=== PATIENT | male | born 1985 | race Caucasian/White ===

== ENCOUNTER 2022-08-08 17:47 | Emergency (ER) | payer BC, SELFPAY ==
--- NOTE | ~2022-08-08 | CT_ITS ---
EXAMINATION: CT ABDOMEN AND PELVIS WITHOUT CONTRAST CLINICAL INFORMATION: Left abdominal pain. COMPARISON: None. TECHNIQUE: Multidetector volumetric imaging was performed from the superior aspect of the liver through the pubic symphysis. Sagittal and coronal reformatted images were obtained on the technologist's workstation. This CT examination was performed using dose optimization techniques as appropriate, variously including the following: *Automated exposure control *Adjustment of mA and/or kV according to patient size (this includes techniques or standardized protocols for targeted exams where dose is matched to indication/reason for exam; i.e. extremities or head) *Use of iterative reconstruction technique DLP: 810 mGy-cm FINDINGS: LUNG BASES: No focal consolidation or pleural effusion. LIVER, GALLBLADDER, AND BILIARY TREE: The liver is enlarged with decreased attenuation suggesting hepatic steatosis with regions of focal fatty sparing adjacent to the gallbladder. There are no suspicious focal liver lesions in this limited noncontrast examination. Normal appearance of the gallbladder. No biliary ductal dilatation. PANCREAS: Unremarkable. SPLEEN: Unremarkable. ADRENAL GLANDS: Unremarkable. KIDNEYS AND URETERS: Mild to moderate left hydroureteronephrosis with a 6 mm calculus in the left ureter at the level of L2-L3 measuring 1084 Hounsfield units. There is a 4 mm calculus in the mid pole of the left kidney (4:302) and a 3 mm calculus in the upper pole of the left kidney (4:256). Approximately 2 or 3 additional punctate calculi are visualized in the left kidney. No right-sided renal calculi. No significant perinephric fat stranding. BLADDER: Unremarkable. GASTROINTESTINAL TRACT: Small hiatal hernia. Normal appendix. No evidence of bowel obstruction. Colonic diverticulosis with no pericolonic inflammatory changes. ABDOMINAL WALL: Small bilateral fat-containing inguinal hernias. LYMPH NODES: No pathologically enlarged lymph nodes. VASCULAR: Scattered atherosclerotic disease. Abdominal aorta is of normal diameter. PELVIC VISCERA: Unremarkable. OSSEOUS STRUCTURES: No acute or aggressive appearing osseous abnormalities. CT/CT abdomen pelvis wo IV con IMPRESSION: 1. Mild to moderate left hydroureteronephrosis with a 6 mm calculus in the left ureter at the level of L2-L3. 2. Additional nonobstructive left-sided renal calculi. 3. Hepatic steatosis. 4. Small hiatal hernia. 5. Diverticulosis but no evidence of acute diverticulitis.
[2022-08-08 18:01] VITALS: BP 162/105; PULSE 75; RESP 26; TEMP 36.2; O2SAT 100; BMI 34.0
--- NOTE | 2022-08-08 18:02 | ED_ITS ---
HPI - Abdominal Pain General Chief Complaint: Urogenital-Male <LAILA Hernandez - Last Filed: 08/08/22 18:07> Stated Complaint: kidney stone <LAILA Hernandez - Last Filed: 08/08/22 18:07> Time Seen by Provider: 08/08/22 18:29 <LAILA Hernandez - Last Filed: 08/08/22 18:07> Source: patient <Wenceslao Rivera MD - Last Filed: 08/08/22 23:03> Mode of arrival: ambulatory <Wenceslao Rivera MD - Last Filed: 08/08/22 23:03> Limitations: no limitations <Wenceslao Rivera MD - Last Filed: 08/08/22 23:03> History of Present Illness HPI narrative: Patient history of kidney stone comes here for sudden onset of sharp pain left flank area 30 minute prior to arrival patient took ibuprofen still pain is associated with nausea no hematuria no abdominal pain no fever or chills no urinary symptoms <Wenceslao Rivera MD - Last Filed: 08/08/22 23:03> Related Data Home Medications: Previous Rx's Medication Instructions Recorded oxycodone-acetaminophen 5 mg-325 1 tab PO Q6H PRN pain #20 tabs 08/08/22 mg tablet (Percocet) tamsulosin 0.4 mg capsule (Flomax) 0.4 mg PO BEDTIME #10 caps 08/08/22 <LAILA Hernandez - Last Filed: 08/08/22 18:07> Allergies/Adverse Reactions: Allergies Allergy/AdvReac Type Severity Reaction Status Date / Time No Known Allergies Allergy Verified 08/08/22 18:02 <LAILA Hernandez - Last Filed: 08/08/22 18:07> Review of Systems Review of Systems Yes all other systems are reviewed and are negative <Wenceslao Rivera MD - Last Filed: 08/08/22 23:03> PMF Past Medical History Medical History: Medical History (Updated 08/08/22 @ 21:39 by Wenceslao Rivera MD) Kidney stone <LAILA Hernandez - Last Filed: 08/08/22 18:07> Social History Social History: Social History Smoked in Last 30 Days: No Use of substances other than those prescribed or required for medical reasons: No Advance Directives: No Advance Directives Information Provided: No <LAILA Hernandez - Last Filed: 08/08/22 18:07> Physical Exam ED Vital Signs: Vital Signs - 24 hr 08/08/22 18:01 08/08/22 20:10 Temperature 97.1 F 98.4 F Pulse Rate 75 73 Respiratory Rate 26 H 18 Blood Pressure 162/105 H 145/97 H Pulse Oximetry 100 97 Oxygen Delivery Method Room Air Room Air BMI result Body Mass Index 34.0 <LAILA Hernandez - Last Filed: 08/08/22 18:07> Vital Signs - 24 hr 08/08/22 18:01 08/08/22 20:10 Temperature 97.1 F 98.4 F Pulse Rate 75 73 Respiratory Rate 26 H 18 Blood Pressure 162/105 H 145/97 H Pulse Oximetry 100 97 Oxygen Delivery Method Room Air Room Air BMI result Body Mass Index 34.0 <Wenceslao Rivera MD - Last Filed: 08/08/22 23:03> Appearance: Alert. Oriented X3. No acute distress. Eyes: PERRLA, No Nystagmus ENT: Pharynx normal. Oral Mucosa moist Neck: Normal inspection. Neck supple. CVS: Normal heart rate and rhythm. Pulses normal. Respiratory: No respiratory distress. Equal air entry bilateral, no wheezing/rales/rhonchi Abdomen: Soft and nontender. Bowel sounds are present, no mass palpable,L CVA tenderness Skin: Skin warm and dry. Normal skin color. Normal skin turgor. Extremities: No lower extremity edema. No calf tenderness Neuro: Oriented X 3. No motor deficit. No sensory deficit.No cerebellar signs , cranial nerves II-XII intact <Wenceslao Rivera MD - Last Filed: 08/08/22 23:03> Course Course Course Narrative: RME-18PM - 37yoM presenting to the ED c c/o left abd/flank pain that started half an hour prior to arrival. He reports associated nausea. He denies any fevers, vomiting, chest pain or shortness of breath, dysuria, hematuria, diarrhea or any other symptoms complaints or concerns at this time. Patient appears to be in moderate pain in triage. Plan: Will obtain labs, UA, CT scan abdomen pelvis without IV contrast. Patient sent back to the waiting room to be evaluated in the ED. <LAILA Hernandez - Last Filed: 08/08/22 18:07> Medical Decision Making Medical Decision Making [facility] Narrative: Patient with 6 mm proximal left ureter stone with [id number] hydroureteronephrosis. Patient feeling much better after IV Toradol pain is almost gone. Will discharge patient home has urologist to follow <Wenceslao Rivera MD - Last Filed: 08/08/22 23:03> Lab Data [facility] Lab Attestation statement: I reviewed the patient's lab results. <Wenceslao Rivera MD - Last Filed: 08/08/22 23:03> Result Diagrams: 08/08/22 18:11 08/08/22 18:11 <LAILA Hernandez - Last Filed: 08/08/22 18:07> Labs: Lab Results 08/08/22 08/08/22 08/08/22 Range/Units 18:11 18:11 18:11 WBC 10.8 (4.8-10.8) X10*3/uL RBC 5.21 (4.60-5.80) X10*6/uL Hgb 15.2 (14.0-18.0) g/dl Hct 44.9 (42.0-52.0) % MCV 86.2 (80.0-98.0) fL MCH 29.2 (27.0-33.0) pg MCHC 33.9 (31.0-36.0) g/dl RDW 13.2 (11.0-16.0) % Plt Count 254 (160-400) X10*3/uL MPV 11.1 (9.4-12.4) fL Immature Gran % (Auto) 0.3 (0.0-0.4) % Neut % (Auto) 40.6 L (45-73) % Lymph % (Auto) 50.0 H (20-40) % [place] % (Auto) 6.6 (2-11) % Eos % (Auto) 2.0 (0-4) % Baso % (Auto) 0.5 (0-2) % Lymph # (Auto) 5.4 H (1.2-4.9) X10*3/uL [place] # (Auto) 0.7 (0.1-1.2) X10*3/uL Eos # (Auto) 0.2 (0.0-0.4) X10*3/uL Baso # (Auto) 0.1 (0.0-0.2) X10*3/uL Abs Immat Gran (auto) 0.03 (0.00-0.03) X10*3/uL Absolute Neuts (auto) 4.4 (2.0-8.3) x10*3/uL Absolute Nucleated RBC 0.000 (0.0-0.012) X10*3/uL Nucleated RBC % (auto) 0.0 (0.0-0.2) /100WBC Smear Tech's Comments VERIFIED PT 12.2 (10.0-13.1) SEC INR 1.1 (0.9-1.1) Sodium 140 (135-145) mmol/L Potassium 3.6 (3.3-5.1) mmol/L Chloride 106 (96-108) mmol/L Carbon Dioxide 19 L (22-29) mmol/L Anion Gap 19 (12-20) BUN 15 (9-16) mg/dL Creatinine 1.18 (0.5-1.4) mg/dL Estim Creat Clear Calc 101.0 Estimated GFR > 60 Random Glucose 136 H (60-115) mg/dL Calcium 9.9 (8.4-10.2) mg/dL Magnesium 2.3 (1.6-2.6) mg/dL Total Bilirubin 0.4 (0.0-1.0) mg/dL AST 58 H (5-37) U/L ALT 88 H (0-40) U/L Alkaline Phosphatase 57 (39-117) U/L Total Protein 8.2 H (6.5-8.0) g/dL Albumin 5.0 (3.5-5.0) g/dL Urine Color Urine Appearance Urine pH (5.0-9.0) Ur Specific [place] (1.005-1.025) Urine Protein (Neg-Trace) mg/dL Urine Glucose (UA) (Negative) mg/dL Urine Ketones (Negative) mg/dL Urine Blood (Negative) Urine Nitrite (Negative) Ur Leukocyte Esterase (Negative) Urine RBC (0-2) /HPF Urine WBC (0-5) /HPF Ur Squamous Epith Cells (0-2) /HPF Urine Bacteria (None Seen) Hyaline Casts (0-2) /LPF 08/08/22 Range/Units 19:44 WBC (4.8-10.8) X10*3/uL RBC (4.60-5.80) X10*6/uL Hgb (14.0-18.0) g/dl Hct (42.0-52.0) % MCV (80.0-98.0) fL MCH (27.0-33.0) pg MCHC (31.0-36.0) g/dl RDW (11.0-16.0) % Plt Count (160-400) X10*3/uL MPV (9.4-12.4) fL Immature Gran % (Auto) (0.0-0.4) % Neut % (Auto) (45-73) % Lymph % (Auto) (20-40) % Mer[place] % (Auto) (2-11) % Eos % (Auto) (0-4) % Baso % (Auto) (0-2) % Lymph # (Auto) (1.2-4.9) X10*3/uL [place] # (Auto) (0.1-1.2) X10*3/uL Eos # (Auto) (0.0-0.4) X10*3/uL Baso # (Auto) (0.0-0.2) X10*3/uL Abs Immat Gran (auto) (0.00-0.03) X10*3/uL Absolute Neuts (auto) (2.0-8.3) x10*3/uL Absolute Nucleated RBC (0.0-0.012) X10*3/uL Nucleated RBC % (auto) (0.0-0.2) /100WBC Smear Tech's Comments PT (10.0-13.1) SEC INR (0.9-1.1) Sodium (135-145) mmol/L Potassium (3.3-5.1) mmol/L Chloride (96-108) mmol/L Carbon Dioxide (22-29) mmol/L Anion Gap (12-20) BUN (9-16) mg/dL Creatinine (0.5-1.4) mg/dL Estim Creat Clear Calc Estimated GFR Random Glucose (60-115) mg/dL Calcium (8.4-10.2) mg/dL Magnesium (1.6-2.6) mg/dL Total Bilirubin (0.0-1.0) mg/dL AST (5-37) U/L ALT (0-40) U/L Alkaline Phosphatase (39-117) U/L Total Protein (6.5-8.0) g/dL Albumin (3.5-5.0) g/dL Urine Color Yellow Urine Appearance Clear Urine pH 6.5 (5.0-9.0) Ur Specific [place] 1.015 (1.005-1.025) Urine Protein Trace (Neg-Trace) mg/dL Urine Glucose (UA) Negative (Negative) mg/dL Urine Ketones Trace (Negative) mg/dL Urine Blood Large (3+) H (Negative) Urine Nitrite Negative (Negative) Ur Leukocyte Esterase Negative (Negative) Urine RBC >20 H (0-2) /HPF Urine WBC 0-5 (0-5) /HPF Ur Squamous Epith Cells 0-2 (0-2) /HPF Urine Bacteria None Seen (None Seen) Hyaline Casts 0-2 (0-2) /LPF <LAILA Hernandez - Last Filed: 08/08/22 18:07> Lab Results 08/08/22 08/08/22 08/08/22 Range/Units 18:11 18:11 18:11 WBC 10.8 (4.8-10.8) X10*3/uL RBC 5.21 (4.60-5.80) X10*6/uL Hgb 15.2 (14.0-18.0) g/dl Hct 44.9 (42.0-52.0) % MCV 86.2 (80.0-98.0) fL MCH 29.2 (27.0-33.0) pg MCHC 33.9 (31.0-36.0) g/dl RDW 13.2 (11.0-16.0) % Plt Count 254 (160-400) X10*3/uL MPV 11.1 (9.4-12.4) fL Immature Gran % (Auto) 0.3 (0.0-0.4) % Neut % (Auto) 40.6 L (45-73) % Lymph % (Auto) 50.0 H (20-40) % [place] % (Auto) 6.6 (2-11) % Eos % (Auto) 2.0 (0-4) % Baso % (Auto) 0.5 (0-2) % Lymph # (Auto) 5.4 H (1.2-4.9) X10*3/uL [place] # (Auto) 0.7 (0.1-1.2) X10*3/uL Eos # (Auto) 0.2 (0.0-0.4) X10*3/uL Baso # (Auto) 0.1 (0.0-0.2) X10*3/uL Abs Immat Gran (auto) 0.03 (0.00-0.03) X10*3/uL Absolute Neuts (auto) 4.4 (2.0-8.3) x10*3/uL Absolute Nucleated RBC 0.000 (0.0-0.012) X10*3/uL Nucleated RBC % (auto) 0.0 (0.0-0.2) /100WBC Smear Tech's Comments VERIFIED PT 12.2 (10.0-13.1) SEC INR 1.1 (0.9-1.1) Sodium 140 (135-145) mmol/L Potassium 3.6 (3.3-5.1) mmol/L Chloride 106 (96-108) mmol/L Carbon Dioxide 19 L (22-29) mmol/L Anion Gap 19 (12-20) BUN 15 (9-16) mg/dL Creatinine 1.18 (0.5-1.4) mg/dL Estim Creat Clear Calc 101.0 Estimated GFR > 60 Random Glucose 136 H (60-115) mg/dL Calcium 9.9 (8.4-10.2) mg/dL Magnesium 2.3 (1.6-2.6) mg/dL Total Bilirubin 0.4 (0.0-1.0) mg/dL AST 58 H (5-37) U/L ALT 88 H (0-40) U/L Alkaline Phosphatase 57 (39-117) U/L Total Protein 8.2 H (6.5-8.0) g/dL Albumin 5.0 (3.5-5.0) g/dL Urine Color Urine Appearance Urine pH (5.0-9.0) Ur Specific [place] (1.005-1.025) Urine Protein (Neg-Trace) mg/dL Urine Glucose (UA) (Negative) mg/dL Urine Ketones (Negative) mg/dL Urine Blood (Negative) Urine Nitrite (Negative) Ur Leukocyte Esterase (Negative) Urine RBC (0-2) /HPF Urine WBC (0-5) /HPF Ur Squamous Epith Cells (0-2) /HPF Urine Bacteria (None Seen) Hyaline Casts (0-2) /LPF 08/08/22 Range/Units 19:44 WBC (4.8-10.8) X10*3/uL RBC (4.60-5.80) X10*6/uL Hgb (14.0-18.0) g/dl Hct (42.0-52.0) % MCV (80.0-98.0) fL MCH (27.0-33.0) pg MCHC (31.0-36.0) g/dl RDW (11.0-16.0) % Plt Count (160-400) X10*3/uL MPV (9.4-12.4) fL Immature Gran % (Auto) (0.0-0.4) % Neut % (Auto) (45-73) % Lymph % (Auto) (20-40) % [place] % (Auto) (2-11) % Eos % (Auto) (0-4) % Baso % (Auto) (0-2) % Lymph # (Auto) (1.2-4.9) X10*3/uL [place] # (Auto) (0.1-1.2) X10*3/uL Eos # (Auto) (0.0-0.4) X10*3/uL Baso # (Auto) (0.0-0.2) X10*3/uL Abs Immat Gran (auto) (0.00-0.03) X10*3/uL Absolute Neuts (auto) (2.0-8.3) x10*3/uL Absolute Nucleated RBC (0.0-0.012) X10*3/uL Nucleated RBC % (auto) (0.0-0.2) /100WBC Smear Tech's Comments PT (10.0-13.1) SEC INR (0.9-1.1) Sodium (135-145) mmol/L Potassium (3.3-5.1) mmol/L Chloride (96-108) mmol/L Carbon Dioxide (22-29) mmol/L Anion Gap (12-20) BUN (9-16) mg/dL Creatinine (0.5-1.4) mg/dL Estim Creat Clear Calc Estimated GFR Random Glucose (60-115) mg/dL Calcium (8.4-10.2) mg/dL Magnesium (1.6-2.6) mg/dL Total Bilirubin (0.0-1.0) mg/dL AST (5-37) U/L ALT (0-40) U/L Alkaline Phosphatase (39-117) U/L Total Protein (6.5-8.0) g/dL Albumin (3.5-5.0) g/dL Urine Color Yellow Urine Appearance Clear Urine pH 6.5 (5.0-9.0) Ur Specific [place] 1.015 (1.005-1.025) Urine Protein Trace (Neg-Trace) mg/dL Urine Glucose (UA) Negative (Negative) mg/dL Urine Ketones Trace (Negative) mg/dL Urine Blood Large (3+) H (Negative) Urine Nitrite Negative (Negative) Ur Leukocyte Esterase Negative (Negative) Urine RBC >20 H (0-2) /HPF Urine WBC 0-5 (0-5) /HPF Ur Squamous Epith Cells 0-2 (0-2) /HPF Urine Bacteria None Seen (None Seen) Hyaline Casts 0-2 (0-2) /LPF <Wenceslao Rivera MD - Last Filed: 08/08/22 23:03> Medications Administered Discontinued Medications Generic Name Dose Route Start Last Admin Trade Name Freq PRN Reason Stop Dose Admin Sodium Chloride 1,000 mls @ 999 mls/hr 08/08/22 18:31 08/08/22 21:22 Ns IV 08/08/22 19:31 Infused .Q1H1M ONE Infusion Ketorolac Tromethamine 30 mg 08/08/22 18:31 08/08/22 19:38 Ketorolac Tromethamine 30 Mg/Ml Vial IVPUSH 08/08/22 18:32 30 mg ONCE ONE Administration Morphine Sulfate 4 mg 08/08/22 18:31 08/08/22 20:34 Morphine Sulfate 4 Mg/Ml Cartridge IVPUSH 08/08/22 18:32 Not Given ONCE ONE Protocol Ondansetron HCl 4 mg 08/08/22 18:31 08/08/22 20:33 Ondansetron Hcl 4 Mg/2 Ml Vial IVPUSH 08/08/22 18:32 Not Given ONCE ONE Oxycodone HCl 10 mg 08/08/22 21:05 08/08/22 21:52 Oxycodone Hcl Immed Release 5 Mg Tablet PO 08/08/22 21:06 10 mg ONCE ONE Administration Tamsulosin HCl 0.4 mg 08/08/22 18:31 08/08/22 19:38 Tamsulosin Hcl 0.4 Mg Capsule PO 08/08/22 18:32 0.4 mg ONCE ONE Administration <LAILA Hernanedz - Last Filed: 08/08/22 18:07> Medications Administered Discontinued Medications Generic Name Dose Route Start Last Admin Trade Name Freq PRN Reason Stop Dose Admin Sodium Chloride 1,000 mls @ 999 mls/hr 08/08/22 18:31 08/08/22 21:22 Ns IV 08/08/22 19:31 Infused .Q1H1M ONE Infusion Ketorolac Tromethamine 30 mg 08/08/22 18:31 08/08/22 19:38 Ketorolac Tromethamine 30 Mg/Ml Vial IVPUSH 08/08/22 18:32 30 mg ONCE ONE Administration Morphine Sulfate 4 mg 08/08/22 18:31 08/08/22 20:34 Morphine Sulfate 4 Mg/Ml Cartridge IVPUSH 08/08/22 18:32 Not Given ONCE ONE Protocol Ondansetron HCl 4 mg 08/08/22 18:31 08/08/22 20:33 Ondansetron Hcl 4 Mg/2 Ml Vial IVPUSH 08/08/22 18:32 Not Given ONCE ONE Oxycodone HCl 10 mg 08/08/22 21:05 08/08/22 21:52 Oxycodone Hcl Immed Release 5 Mg Tablet PO 08/08/22 21:06 10 mg ONCE ONE Administration Tamsulosin HCl 0.4 mg 08/08/22 18:31 08/08/22 19:38 Tamsulosin Hcl 0.4 Mg Capsule PO 08/08/22 18:32 0.4 mg ONCE ONE Administration <Wenceslao Rivera MD - Last Filed: 08/08/22 23:03> Discharge Plan Discharge Clinical Impression: Kidney stone on left side <LAILA Hernandez - Last Filed: 08/08/22 18:07> Patient Disposition: Home, Self-Care <LAILA Hernandez - Last Filed: 08/08/22 18:07> Instructions: Kidney Stones (ED) <LAILA Hernandez - Last Filed: 08/08/22 18:07> Additional Instructions: Drink plenty of fluids Pain medication as prescribed Flomax as prescribed Follow up with urologist strain your urine Diet restrictions as advised avoid food containing high uric acid/oxalate <LAILA Hernandez - Last Filed: 08/08/22 18:07> Prescriptions: New oxycodone-acetaminophen [Percocet] 5-325 mg tablet 1 tab PO Q6H PRN (Reason: pain) Qty: 20 0RF Rx Instructions: Partial Fill upon patient request. tamsulosin [Flomax] 0.4 mg capsule 0.4 mg PO BEDTIME Qty: 10 0RF <LAILA Hernandez - Last Filed: 08/08/22 18:07> Referrals: Benjamin Holman MD [Physician] - 2 days <LAILA Hernandez - Last Filed: 08/08/22 18:07> Interventions: ED Discharge Assessment Last Done: 08/08/22 22:17 <LAILA Hernandez - Last Filed: 08/08/22 18:07> Discharge Date/Time: 08/08/22 22:17 <LAILA Hernandez - Last Filed: 08/08/22 18:07>
[2022-08-08 18:22] LABS: INTERNATIONAL NORM RATIO 1.1 (0.9-1.1); Prothrombin Time 12.2 SEC (10.0-13.1)
[2022-08-08 18:24] LABS: Basophils Absolute Auto 0.1 X10*3/uL (0.0-0.2); Basophils Percent Auto 0.5 % (0-2); Eosinophils Absolute Auto 0.2 X10*3/uL (0.0-0.4); Hematocrit 44.9 % (42.0-52.0); Hemoglobin 15.2 g/dl (14.0-18.0); Imm Gran Abs Auto 0.03 X10*3/uL (0.00-0.03); Imm Gran Pct Auto 0.3 % (0.0-0.4); Lymphocytes Absolute Auto 5.4 X10*3/uL (1.2-4.9); MANUAL DIFF FLAG SCAN; Mean Corpuscular HGB Conc 33.9 g/dl (31.0-36.0); Mean Corpuscular Hemoglobin 29.2 pg (27.0-33.0); Mean Corpuscular Volume 86.2 fL (80.0-98.0); Mean Platelet Volume 11.1 fL (9.4-12.4); Monocytes Absolute Auto 0.7 X10*3/uL (0.1-1.2); Monocytes Percent Auto 6.6 % (2-11); Neutrophils Absolute Auto 4.4 x10*3/uL (2.0-8.3); Neutrophils Percent Auto 40.6 % (45-73); Platelet Count 254 X10*3/uL (160-400); Red Blood Count 5.21 X10*6/uL (4.60-5.80); Red Cell Distribution Width 13.2 % (11.0-16.0); SCAN SMEAR FLAG 1; White Blood Count 10.8 X10*3/uL (4.8-10.8)
[2022-08-08 18:31] LABS: Alanine Aminotransferase 88 U/L (0-40); Alkaline Phosphatase 57 U/L (39-117); Anion Gap 19 (12-20); Aspartate Amino Transferase 58 U/L (5-37); Bilirubin Total 0.4 mg/dL (0.0-1.0); Blood Urea Nitrogen 15 mg/dL (9-16); Calcium 9.9 mg/dL (8.4-10.2); Carbon Dioxide 19 mmol/L (22-29); Chloride 106 mmol/L (96-108); Estimated Glomerular Filt Rate > 60; Glucose Random 136 mg/dL (60-115); Magnesium 2.3 mg/dL (1.6-2.6); Potassium 3.6 mmol/L (3.3-5.1); Sodium 140 mmol/L (135-145); Total Protein 8.2 g/dL (6.5-8.0)
[2022-08-08 18:54] LABS: SLIDE REVIEW VERIFIED
[2022-08-08] MEDS: Tamsulosin HCL 0.4 MG CAPSULE PO (19:38)
[2022-08-08] MEDS: Ketorolac Tromethamine 30 MG/ML VIAL IVPUSH (19:38)
[2022-08-08] MEDS: 0.9 % Sodium Chloride 1,000 ML 999 ML IV (19:38)
[2022-08-08 20:10] VITALS: BP 145/97; PULSE 73; RESP 18; TEMP 36.9; O2SAT 97
[2022-08-08 20:15] LABS: Appearance Urine Clear; Color Urine Yellow; Glucose Urine UA Negative (Negative); Leukocyte Esterase Urine Negative (Negative); Nitrite Urine Negative (Negative); PH 6.5 (5.0-9.0); Specific Gravity - Urine 1.015 (1.005-1.025); UMIC TRIGGER UACC YES; Urine Blood Large (3+) (Negative); Urine Ketones Trace mg/dL (Negative); Urine Protein Trace mg/dL (Neg-Trace)
[2022-08-08 20:20] LABS: Bacteria Urine None Seen (None Seen); Hyaline Casts Urine 0-2 /LPF (0-2); RBC Urine >20 /HPF (0-2); Squamous Epithelial Cell Urine 0-2 /HPF (0-2); WBC Urine 0-5 /HPF (0-5)
--- NOTE | 2022-08-08 20:31 | PC.NURSE ---
this rn attempted to medicated pt according to mar @ 1919. pt declined morphine and zofran iv. this rn rechecked with pt @ 2024 pain level 0/10 pt once again declined medication at this time
[2022-08-08] MEDS: oxyCODONE HCl Immed Release 5 MG TABLET 10 MG PO (21:52)
--- NOTE | 2022-08-08 22:15 | PC.NURSE ---
pt medicated according to mar. pt provided with urine strainer and educated on how to utilize at time of discharge. iv removed at time of discharge. pt ambulatory at time of discharge. pt provided with discharge packet. pt verbalized understanding of discharge plan
== END 2022-08-08 22:17 | disposition home or self-care (01) ==
PROVIDERS: Physician Assistant Medical; Emergency Provider Internal Medicine; PCP Psychiatry & Neurology Neurology
DX: N20.0 Calculus of kidney (principal); Z79.899 Other long term (current) drug therapy
CPT/HCPCS: 36415; 74176; 80053; 81001; 81003; 83735; 85025; 85610; 96361; 96374; 96375; 99284; J1885

== ENCOUNTER 2022-12-26 04:25 | Emergency (ER) | payer BC, SELFPAY ==
[2022-12-26 04:27] VITALS: BP 147/105; PULSE 69; RESP 16; TEMP 36.6; O2SAT 98; BMI 33.9
--- NOTE | 2022-12-26 06:18 | ED.DENTAL ---
HPI - Dental/Oral General Chief complaint: Dental/Oral Stated complaint: Toothache Time Seen by Provider: 12/26/22 05:49 Source: patient Mode of arrival: ambulatory History of Present Illness HPI Narrative: 37-year-old male who presents, he is a nonsmoker, and states that he has known impacted wisdom teeth, and reports pain at the most posterior left lower tooth that is aching in nature has not been associated with any fevers or chills and states that when he puts ice on and it actually feels better. Related Data Home Medications Medication Instructions Recorded Confirmed paroxetine HCl 10 mg tablet 10 mg PO DAILY 12/26/22 12/26/22 Previous Rx's Medication Instructions Recorded clindamycin HCl 300 mg capsule 300 mg PO Q6H 7 days #28 caps 12/26/22 ketorolac 10 mg tablet 10 mg PO Q6H PRN pain 5 days #20 12/26/22 tabs Allergies Allergy/AdvReac Type Severity Reaction Status Date / Time Penicillins Allergy Unknown Verified 12/26/22 06:12 sulfamethoxazole Allergy Unknown Verified 12/26/22 06:12 [From Aprra] trimethoprim [From Aprra] Allergy Unknown Verified 12/26/22 06:12 Review of Systems Review of Systems: Pertinent positives and negatives as stated in HPI PMFSH Past Medical History Source: nursing notes reviewed Medical History Kidney stone Social History Social History Alcohol intake: never Physical Exam Vital Signs: Vital Signs: Last Vital Signs Temp 97.8 F 12/26/22 04:27 Pulse 69 12/26/22 04:27 Resp 16 12/26/22 04:27 BP 147/105 H 12/26/22 04:27 Pulse Ox 98 12/26/22 04:27 O2 Del Method Room Air 12/26/22 04:27 BMI result Body Mass Index 33.9 VITAL SIGNS: Reviewed. GENERAL: Well developed, well nourished, in no acute distress. HEAD: Normocephalic/atraumatic EYES: PERRLA, EOMI EARS: Ext canals without abnormality, TMs non-bulging and non-erythematous NOSE: Nares patent bilateral OROPHARYNX: no oral lesions noted, posterior pharynx clear, no trismus, left most posterior molar abuts a section of gum tissue that does not appear to be edematous but appears friable and ulcerative in nature NECK: Supple, no adenopathy LUNGS: Normal breath sounds. No adventitious sounds or accessory muscle use. SpO2<98> CARDIOVASCULAR: Regular rate and rhythm without noted murmurs ABDOMEN: Soft, non-tender, non-distended with bowel sounds. MUSCULOSKELETAL: No tenderness, deformities, or effusions noted on gross inspection. EXTREMITIES: No cyanosis, clubbing or edema. SKIN: Inspection of the skin reveals no rashes NEUROLOGIC: Alert and oriented x 4. Strength and sensation to light touch were grossly intact x 4. Medical Decision Making Medical Decision Making MDM Narrative: 37-year-old male with history and clinical presentation of dubious findings for dental infection, will treat for infection at this time as well as providing topical analgesic and provided prescription for remaining course of antibiotics. However, the tissue appears to be very friable and ulcerative in nature. I am concerned that there is something further going on other than infection and really communicated to the patient that he should follow-up with a dentist at his earliest convenience. He is allergic to penicillins and will go home with a course of clindamycin. He received combination analgesics here in the emergency room. Differential Diagnosis Please see the discussion above Discharge Plan Discharge Clinical Impression: Toothache, Dental abscess Patient Disposition: Home, Self-Care Instructions: Dental Abscess (ED), Toothache (ED) Additional Instructions: 1. Complete the entire course of antibiotics as ordered. 2. Tylenol 1000 mg, orally, every 6 hours as needed for pain control. Do not exceed 4000 mg within 24 hours. 3. You have been prescribed an anti-inflammatory medication and should stop all other jxif-apn-[id number] anti-inflammatories such as ibuprofen/Motrin/Aleve/Naprosyn. 4. Please call your dentist at your earliest convenience on Tuesday morning. Return to the ER for any worsening symptoms. Prescriptions: New clindamycin HCl 300 mg capsule 300 mg PO Q6H 7 Days Qty: 28 0RF ketorolac 10 mg tablet 10 mg PO Q6H PRN (Reason: pain) 5 Days Qty: 20 0RF Rx Instructions: Patient had Toradol in the emergency room No Action paroxetine HCl 10 mg tablet 10 mg PO DAILY Referrals: Clint Gregorio MD [Primary Care Provider] -
[2022-12-26] MEDS: Acetaminophen 325 MG TABLET 975 MG PO (07:12)
[2022-12-26] MEDS: Clindamycin HCL 300 MG CAPSULE PO (07:12)
[2022-12-26] MEDS: Ketorolac Tromethamine 15 MG/ML VIAL IM (07:13)
== END 2022-12-26 07:19 | disposition home or self-care (01) ==
PROVIDERS: Emergency Provider Student in an Organized Health Care Education/Training Program; PCP Internal Medicine
DX: K04.7 Periapical abscess without sinus (principal); Z79.899 Other long term (current) drug therapy
CPT/HCPCS: 96372; 99284; J1885

== ENCOUNTER 2023-07-19 08:21 | Emergency (ER) | payer BC, SELFPAY ==
--- NOTE | ~2023-07-19 | CT_ITS ---
EXAMINATION: CT ABDOMEN AND PELVIS WITHOUT CONTRAST CLINICAL INFORMATION: Left flank pain to genitals COMPARISON: None available. TECHNIQUE: Multidetector volumetric imaging was performed from the superior aspect of the liver through the pubic symphysis. Sagittal and coronal reformatted images were obtained on the technologist's workstation. This CT examination was performed using dose optimization techniques as appropriate, variously including the following: *Automated exposure control *Adjustment of mA and/or kV according to patient size (this includes techniques or standardized protocols for targeted exams where dose is matched to indication/reason for exam; i.e. extremities or head) *Use of iterative reconstruction technique DLP: 803 mGy-cm FINDINGS: LUNG BASES: The visualized lung bases are unremarkable. LIVER, GALLBLADDER, AND BILIARY TREE: The liver is normal in size and shape. Decreased hepatic attenuation suggesting hepatic steatosis with regions of focal fatty sparing adjacent to gallbladder fossa. No focal hepatic lesion or biliary ductal dilatation is present. The gallbladder is unremarkable with no evidence of radiopaque gallstones, gallbladder wall thickening, or obvious pericholecystic inflammatory changes. PANCREAS: Unremarkable. SPLEEN: Unremarkable. ADRENAL GLANDS: Unremarkable. KIDNEYS AND URETERS: Mild left-sided hydroureteronephrosis secondary to a 4 mm calculus in the left proximal/mid ureter with slight periureteral stranding. Additional calculi noted in the left kidney in the interpolar region measuring 2 mm. No right-sided nephrolithiasis or hydronephrosis. BLADDER: Unremarkable. GASTROINTESTINAL TRACT: Colonic diverticulosis without acute diverticulitis. The small and large bowel are unremarkable. The appendix is unremarkable. ABDOMINAL WALL: Bilateral fat filled inguinal hernias. LYMPH NODES: A few mildly prominent mesenteric lymph nodes are noted the largest in the portal caval region measuring up to 1.1 cm in short axis. VASCULAR: Abdominal aorta is nonaneurysmal. PELVIC VISCERA: Prostate measures 4.4 cm. OSSEOUS STRUCTURES: Multilevel degenerative changes of the thoracolumbar lumbosacral spine. Sclerotic focus in the left pubic symphysis statistically representing bone island. CT/CT abdomen pelvis wo IV con IMPRESSION: 1. Mild left-sided hydroureteronephrosis secondary to a 4 mm calculus in the left proximal/mid ureter with slight periureteral stranding. Additional calculi noted in the left kidney in the interpolar region measuring 2 mm. 2. Decreased hepatic attenuation suggesting hepatic steatosis with regions of focal fatty sparing adjacent to gallbladder fossa. 3. Colonic diverticulosis without acute diverticulitis. 4. A few mildly prominent mesenteric lymph nodes are noted the largest in the portal caval region measuring up to 1.1 cm in short axis.
[2023-07-19 08:28] VITALS: BP 154/113; PULSE 68; RESP 19; TEMP 35.8; O2SAT 100; BMI 34.2
--- NOTE | 2023-07-19 08:38 | ED_ITS ---
HPI - Abdominal Pain General Chief Complaint: Abdominal Pain Stated Complaint: kidney stone Time Seen by Provider: 07/19/23 08:36 Source: patient Mode of arrival: ambulatory Limitations: no limitations History of Present Illness HPI narrative: 38-year-old male history of kidney stones presenting to the emergency department with sudden-onset left-sided flank pain with radiation into the abdomen and genitals started around 730 this morning has been present ever since patient has tried Motrin and Percocet with little to no relief. Patient reports he last had a stone in August and this feels very similar. Denies fevers, chills, nausea, vomiting, chest pain, shortness of breath, headache, vision changes, dizziness and weakness Related Data Home Medications Medication Instructions Recorded Confirmed paroxetine HCl 10 mg tablet 10 mg PO DAILY 12/26/22 12/26/22 Previous Rx's Medication Instructions Recorded clindamycin HCl 300 mg capsule 300 mg PO Q6H 7 days #28 caps 12/26/22 ketorolac 10 mg tablet 10 mg PO Q6H PRN pain 5 days #20 12/26/22 tabs ketorolac 10 mg tablet 10 mg PO TID PRN pain 5 days #15 07/19/23 tabs ondansetron 4 mg disintegrating 4 mg PO Q6H PRN nausea and 07/19/23 tablet vomiting #14 tabs prednisone 20 mg tablet 20 mg PO DAILY 5 days #5 tabs 07/19/23 tamsulosin 0.4 mg capsule (Flomax) 0.4 mg PO DAILY 2 weeks #14 caps 07/19/23 Allergies Allergy/AdvReac Type Severity Reaction Status Date / Time Penicillins Allergy Unknown Verified 12/26/22 06:12 sulfamethoxazole Allergy Unknown Verified 12/26/22 06:12 [From ] trimethoprim [From ] Allergy Unknown Verified 12/26/22 06:12 Review of Systems Review of Systems Constitutional : No Weight loss, No Fever, No Chills, No Fatigue, No Malaise ENT/Mouth : No sore throat, No Rhinorrhea Eyes: No Eye Pain, No Swelling, No Redness Cardiovascular : No Chest Pain, No SOB, No Dyspnea on Exertion, No Orthopnea, No Edema, No Palpitations Respiratory : No Cough, No Sputum, No Wheezing Gastrointestinal : No Nausea, No Vomiting, No Diarrhea, No Constipation, No abdominal Pain, No Hematochezia, No Melena Genitourinary : No Dysuria, No Urinary Frequency, No Hematuria, Musculoskeletal : No joint pain, No Myalgias, No Joint Swelling, + flank pain Skin : No Skin Lesions, No rash Neuro : No Weakness, No Numbness, No Dizziness, No Headache Psych : No Anxiety/Panic, No Depression All other systems reviewed and are negative Yes all other systems are reviewed and are negative [facility] Past Medical History Attestation statement: The following information was validated with the patient. Source: old records reviewed and nursing notes reviewed Medical History Kidney stone Social History Social History Alcohol intake: never Smoked in Last 30 Days: No Use of substances other than those prescribed or required for medical reasons: No Advance Directives: No Physical Exam ED Vital Signs: Vital Signs - 24 hr 07/19/23 08:28 07/19/23 09:38 07/19/23 11:42 Temperature 96.4 F L 97.9 F 98.1 F Pulse Rate 68 83 76 Respiratory Rate 19 16 14 Blood Pressure 154/113 H 128/86 142/96 H Pulse Oximetry 100 95 96 Oxygen Delivery Method Room Air Room Air Room Air BMI result Body Mass Index 34.2 Hypertensive likely secondary to pain Appearance: Alert.? Oriented X3.? No acute distress.? Head: Normocephalic, atraumatic, no step-offs or deformities Eyes: Pupils equal, round and reactive to light.? ENT: Pharynx normal.? Neck: Normal inspection.? Neck supple.? CVS: Normal heart rate and rhythm.? Pulses normal.? Respiratory: No respiratory distress.? Breath sounds normal.? Abdomen: Soft and nontender.? Skin: Skin warm and dry.? Normal skin color.? Normal skin turgor.? Extremities: No lower extremity edema.? No calf ttp. 5/5 strength to bilateral upper and lower extremities Back: No midline tenderness, no C-spine tenderness, full range of motion, No CVA tenderness Neuro: Oriented X 3.? No motor deficit.? No sensory deficit. CN 2-12 intact Course Reevaluation(s) Reevaluation #1: Upon chart review it is noted that patient was seen here this August and was noted to have a large 6 mm stone in the left ureter. Labs pending at this time. Patient uncomfortable morphine ordered for pain Time: 08:40 Reevaluation #2: CT showing mild left-sided hydroureter nephrosis secondary to 4 mm calculus in left proximal mid ureter with slight periureteral stranding. Additional calculi noted in the left kidney interpolar region 2 mm. These results discussed with patient. Patient's pain is completely gone. I did discuss this case with Urology small stone appropriate for outpatient follow-up. Patient feeling much better. Educated patient on diagnosis and treatment plan, answered all question, patient verbalizes understanding. At this time patient will be discharged home, advised to return with new or worsening symptoms. Educated on worrisome signs and symptoms and when to return. At this time I feel comfortable discharge home. Time: 13:10 Medical Decision Making Medical Decision Making [facility] Narrative: 38-year-old male presents with left flank pain with radiation to abdomen and genital since 02/27 this morning. History of kidney stone On exam patient having a hard time sitting still otherwise unremarkable. This is likely kidney stone versus obstructing uropathy. Unlikely acute abdomen, testicular torsion, diverticulitis, appendicitis, cholecystitis, pancreatitis Plan at this time will obtain labs, urine, CT abdomen and pelvis to rule out stones. Differential Diagnosis Differential Diagnoses: The differential diagnosis associated with the presentation includes This is likely kidney stone versus obstructing uropathy. Unlikely acute abdomen, testicular torsion, diverticulitis, appendicitis, cholecystitis, pancreatitis Admission/Observation Consideration of admission/observation: Escalation of care including admission/observation considered Likely Consult Healthcare Provider Management of the patient was discussed with: Clinic Assistant Lab Data [facility] Lab Attestation statement: I reviewed the patient's lab results. 07/19/23 09:25 07/19/23 09:25 Labs: Lab Results 07/19/23 07/19/23 Range/Units 08:38 09:25 WBC 7.6 (4.8-10.8) X10*3/uL RBC 5.04 (4.60-5.80) X10*6/uL Hgb 14.9 (14.0-18.0) g/dl Hct 43.6 (42.0-52.0) % MCV 86.5 (80.0-98.0) fL MCH 29.6 (27.0-33.0) pg MCHC 34.2 (31.0-36.0) g/dl RDW 12.9 (11.0-16.0) % Plt Count 181 D (160-400) X10*3/uL MPV 11.2 (9.4-12.4) fL Immature Gran % (Auto) 0.3 (0.0-0.4) % Neut % (Auto) 74.7 H (45-73) % Lymph % (Auto) 17.4 L (20-40) % [place] % (Auto) 6.5 (2-11) % Eos % (Auto) 0.8 (0-4) % Baso % (Auto) 0.3 (0-2) % Lymph # (Auto) 1.3 (1.2-4.9) X10*3/uL K[place]t # (Auto) 0.5 (0.1-1.2) X10*3/uL Eos # (Auto) 0.1 (0.0-0.4) X10*3/uL Baso # (Auto) 0.0 (0.0-0.2) X10*3/uL Abs Immat Gran (auto) 0.02 (0.00-0.03) X10*3/uL Absolute Neuts (auto) 5.7 (2.0-8.3) x10*3/uL Absolute Nucleated RBC 0.000 (0.0-0.012) X10*3/uL Nucleated RBC % (auto) 0.0 (0.0-0.2) /100WBC Sodium 137 (135-145) mmol/L Potassium 3.7 (3.3-5.1) mmol/L Chloride 105 (96-108) mmol/L Carbon Dioxide 21 L (22-29) mmol/L Anion Gap 15 (12-20) BUN 13 (9-16) mg/dL Creatinine 0.79 (0.5-1.4) mg/dL Estim Creat Clear Calc 154.5 Estimated GFR > 60 Random Glucose 104 (60-115) mg/dL Calcium 9.0 D (8.4-10.2) mg/dL Magnesium 2.1 (1.6-2.6) mg/dL Total Bilirubin 0.5 (0.0-1.0) mg/dL AST 42 H (5-37) U/L ALT 68 H (0-40) U/L Alkaline Phosphatase 60 (39-117) U/L Total Protein 7.9 (6.5-8.0) g/dL Albumin 4.7 (3.5-5.0) g/dL Urine Color Yellow Urine Appearance Hazy Urine pH 8.0 (5.0-9.0) Ur Specific [place] 1.015 (1.005-1.025) Urine Protein Negative (Neg-Trace) mg/dL Urine Glucose (UA) Negative (Negative) mg/dL Urine Ketones Trace (Negative) mg/dL Urine Blood Large (3+) H (Negative) Urine Nitrite Negative (Negative) Ur Leukocyte Esterase Negative (Negative) Urine RBC >20 H (0-2) /HPF Urine WBC 0-5 (0-5) /HPF Ur Squamous Epith Cells 0-2 (0-2) /HPF Urine Bacteria None Seen (None Seen) Hyaline Casts 0-2 (0-2) /LPF Independent Interpretation I performed an independent interpretation of an: CT Scan Radiology Impression Discussion of test interpretation with radiology: I have reviewed the radiologist's reading. Medications Administered Discontinued Medications Generic Name Dose Route Start Last Admin Trade Name Freq PRN Reason Stop Dose Admin Hydromorphone HCl 1 mg 07/19/23 09:59 07/19/23 11:57 Hydromorphone Hcl 1 Mg/Ml Syringe IVPUSH 07/19/23 10:00 Not Given ONCE ONE Protocol Sodium Chloride 1,000 mls @ 999 mls/hr 07/19/23 08:45 07/19/23 11:00 Ns IV 07/19/23 09:45 Infused .Q1H1M REGAN Infusion Sodium Chloride 1,000 mls @ 999 mls/hr 07/19/23 08:45 07/19/23 11:57 Ns IV 07/19/23 09:45 999 mls/hr .Q1H1M REGAN Administration Ketorolac Tromethamine 30 mg 07/19/23 08:43 07/19/23 09:31 Ketorolac Tromethamine 15 Mg/Ml Vial IVPUSH 07/19/23 08:44 30 mg ONCE ONE Administration Prednisone 20 mg 07/19/23 08:43 07/19/23 09:32 Prednisone 20 Mg Tablet PO 07/19/23 08:44 20 mg ONCE ONE Administration Tamsulosin HCl 0.4 mg 07/19/23 08:43 07/19/23 09:32 Tamsulosin Hcl 0.4 Mg Capsule PO 07/19/23 08:44 0.4 mg ONCE ONE Administration Discharge Plan Discharge Clinical Impression: Calculus of kidney Patient Disposition: Home, Self-Care Instructions: Kidney Stones (ED) Additional Instructions: Take your medications as prescribed. If you were prescribed antibiotics today, it is important that you take your medication to their entirety, do not skip any doses, do not finish them early. Follow-up with your primary care provider this week. Return to the emergency department with new or worsening symptoms. Such as fevers, chills, chest pain, shortness of breath, nausea, vomiting, dizziness, headache, vision changes, lethargy In case of emergency call 911 Follow up with urology this week CT/CT abdomen pelvis wo IV con IMPRESSION: 1. Mild left-sided hydroureteronephrosis secondary to a 4 mm calculus in the left proximal/mid ureter with slight periureteral stranding. Additional calculi noted in the left kidney in the interpolar region measuring 2 mm. 2. Decreased hepatic attenuation suggesting hepatic steatosis with regions of focal fatty sparing adjacent to gallbladder fossa. 3. Colonic diverticulosis without acute diverticulitis. 4. A few mildly prominent mesenteric lymph nodes are noted the largest in the portal caval region measuring up to 1.1 cm in short axis. Prescriptions: New prednisone 20 mg tablet 20 mg PO DAILY 5 Days Qty: 5 0RF ketorolac 10 mg tablet 10 mg PO TID PRN (Reason: pain) 5 Days Qty: 15 0RF tamsulosin [Flomax] 0.4 mg capsule 0.4 mg PO DAILY 14 Days Qty: 14 0RF ondansetron 4 mg tablet,disintegrating 4 mg PO Q6H PRN (Reason: nausea and vomiting) Qty: 14 0RF No Action paroxetine HCl 10 mg tablet 10 mg PO DAILY clindamycin HCl 300 mg capsule 300 mg PO Q6H 7 Days Qty: 28 0RF ketorolac 10 mg tablet 10 mg PO Q6H PRN (Reason: pain) 5 Days Qty: 20 0RF Rx Instructions: Patient had Toradol in the emergency room Referrals: [facility] – [place] [facility] [Provider Group] - 2 days Physician,Unknown J [Primary Care Provider] - 2 days
[2023-07-19 08:47] LABS: Appearance Urine Hazy; Color Urine Yellow; Glucose Urine UA Negative (Negative); Leukocyte Esterase Urine Negative (Negative); Nitrite Urine Negative (Negative); Specific Gravity - Urine 1.015 (1.005-1.025); UMIC TRIGGER UACC YES; Urine Blood Large (3+) (Negative); Urine Ketones Trace mg/dL (Negative); Urine Protein Negative (Neg-Trace)
[2023-07-19 08:48] LABS: Bacteria Urine None Seen (None Seen); Hyaline Casts Urine 0-2 /LPF (0-2); RBC Urine >20 /HPF (0-2); Squamous Epithelial Cell Urine 0-2 /HPF (0-2); WBC Urine 0-5 /HPF (0-5)
[2023-07-19 09:31] LABS: MANUAL DIFF FLAG NO
[2023-07-19] MEDS: Ketorolac Tromethamine 15 MG/ML VIAL 30 MG IVPUSH (09:31)
[2023-07-19] MEDS: Tamsulosin HCL 0.4 MG CAPSULE PO (09:32)
[2023-07-19] MEDS: predniSONE 20 MG TABLET PO (09:32)
[2023-07-19] MEDS: 0.9 % Sodium Chloride 1,000 ML 999 ML IV ×2 (09:32→11:57)
[2023-07-19 09:35] LABS: Basophils Percent Auto 0.3 % (0-2); Eosinophils Absolute Auto 0.1 X10*3/uL (0.0-0.4); Eosinophils Percent Auto 0.8 % (0-4); Hematocrit 43.6 % (42.0-52.0); Hemoglobin 14.9 g/dl (14.0-18.0); Imm Gran Abs Auto 0.02 X10*3/uL (0.00-0.03); Imm Gran Pct Auto 0.3 % (0.0-0.4); Lymphocytes Absolute Auto 1.3 X10*3/uL (1.2-4.9); Lymphocytes Percent Auto 17.4 % (20-40); Mean Corpuscular HGB Conc 34.2 g/dl (31.0-36.0); Mean Corpuscular Hemoglobin 29.6 pg (27.0-33.0); Mean Corpuscular Volume 86.5 fL (80.0-98.0); Mean Platelet Volume 11.2 fL (9.4-12.4); Monocytes Absolute Auto 0.5 X10*3/uL (0.1-1.2); Monocytes Percent Auto 6.5 % (2-11); Neutrophils Absolute Auto 5.7 x10*3/uL (2.0-8.3); Neutrophils Percent Auto 74.7 % (45-73); Platelet Count 181 X10*3/uL (160-400); Red Blood Count 5.04 X10*6/uL (4.60-5.80); Red Cell Distribution Width 12.9 % (11.0-16.0); White Blood Count 7.6 X10*3/uL (4.8-10.8)
[2023-07-19 09:38] VITALS: BP 128/86; PULSE 83; RESP 16; TEMP 36.6; O2SAT 95
[2023-07-19 09:48] LABS: Alanine Aminotransferase 68 U/L (0-40); Albumin Level 4.7 g/dL (3.5-5.0); Alkaline Phosphatase 60 U/L (39-117); Anion Gap 15 (12-20); Aspartate Amino Transferase 42 U/L (5-37); Bilirubin Total 0.5 mg/dL (0.0-1.0); Blood Urea Nitrogen 13 mg/dL (9-16); Carbon Dioxide 21 mmol/L (22-29); Chloride 105 mmol/L (96-108); Creatinine Clr Calc Pharmacy 154.5; Estimated Glomerular Filt Rate > 60; Glucose Random 104 mg/dL (60-115); Magnesium 2.1 mg/dL (1.6-2.6); Potassium 3.7 mmol/L (3.3-5.1); Sodium 137 mmol/L (135-145); Total Protein 7.9 g/dL (6.5-8.0)
[2023-07-19 11:42] VITALS: BP 142/96; PULSE 76; RESP 14; TEMP 36.7; O2SAT 96
== END 2023-07-19 13:18 | disposition home or self-care (01) ==
PROVIDERS: Physician Assistant; Emergency Provider Emergency Medicine
DX: N20.0 Calculus of kidney (principal); N48.89 Other specified disorders of penis; Z79.899 Other long term (current) drug therapy
CPT/HCPCS: 36415; 74176; 80053; 81001; 83735; 85025; 96361; 96374; 99284; 99285; J1885